=== PATIENT | male | born 1985 | race Caucasian/White ===

== ENCOUNTER 2024-06-01 07:53 | Outpatient (CLI) | payer OTHER, SELFPAY ==
--- OUTSIDE RECORDS SUMMARY | 2024-06-01 07:55 | XMS_ITS | Clinical Summary ---
Author Organization [employer] [facility] Address [place], [place] [address] Care Team Providers Care Civil Engineering Specialist Name Role Phone Pcp, No Primary Care Provider Unavailabl e Allergies No known active allergies Medications No known medications Immunizations Name Administration Dates Next Due Tdap 11/03/2021 Social History Tobacco Use Types Packs/Day Years Used Date Smoking Tobacco: Never Assessed Sex and Gender Information Value Date Recorded Sex Assigned at Not on file Gender Identity Not on file Sexual Orientation Not on file Last Filed Vital Signs Vital Sign Reading Time Taken Comments Blood Pressure 154/95 11/03/2021 11:22 AM CHLORINE OPERATOR Pulse 87 11/03/2021 11:22 AM CHLORINE OPERATOR Temperature 36.7 ??C (98 ??F) 11/03/2021 11:22 AM CHLORINE OPERATOR Respiratory Rate 20 11/03/2021 11:22 AM CHLORINE OPERATOR Oxygen Saturation 100% 11/03/2021 11:22 AM CHLORINE OPERATOR Inhaled Oxygen Concentration - - Weight 95.7 kg (211 lb) 11/03/2021 11:22 AM CHLORINE OPERATOR Height 185.4 cm (6' 1) 11/03/2021 11:22 AM CHLORINE OPERATOR Body Mass Index 27.84 11/03/2021 11:22 AM CHLORINE OPERATOR Plan of Treatment Not on file Care Teams Civil Engineering Specialist Relationship Specialty Start Date End Date Pcp, No . PCP - General 11/03/21
== END 2024-06-01 07:54 | disposition home or self-care (01) ==
PROVIDERS: PCP Family Medicine; Visit Provider Family Medicine
DX: I10 Essential (primary) hypertension (principal); Z13.220 Encounter for screening for lipoid disorders
CPT/HCPCS: 80053; 80061

== ENCOUNTER 2025-06-16 16:05 | Outpatient (CLI) | payer OTHER, SELFPAY | END 2025-06-16 16:06 | disposition home or self-care (01) | LOC: NFLDREF 22:55 | PROVIDERS: PCP Family Medicine; Referring Provider Family Medicine; Visit Provider Family Medicine | DX: Z13.220 Encounter for screening for lipoid disorders (principal); I10 Essential (primary) hypertension | CPT/HCPCS: 80048; 80061 ==